=== PATIENT | female | born 1970 | race Caucasian/White ===

== ENCOUNTER → 2018-10-30 09:20 | Outpatient (CLI) | payer MEDICARE, OTHER, SELFPAY ==
[2018-10-30 09:50] LABS: Add Manual Diff / Slide Review NO; Basophils Absolute Auto 100 /uL (0-100); Basophils Percent Auto 0.9 % (0-2); Eosinophils Absolute Auto 200 /uL (0-450); Eosinophils Percent Auto 3.5 % (2-4); Hematocrit 39.2 % (36-46); Hemoglobin 12.9 g/dL (12.0-16.0); Lymphocytes Absolute Auto 1500 /uL (1100-4500); Lymphocytes Percent Auto 23.6 % (25-40); Mean Corpuscular HGB Conc 32.9 % (30-36); Mean Corpuscular Hemoglobin 29.6 PG (26-34); Mean Corpuscular Volume 90.2 fL (80-100); Monocytes Absolute Auto 400 /uL (0-900); Monocytes Percent Auto 6.5 % (3-14); Neutrophils Absolute Auto 4100 /uL (1500-7000); Neutrophils Percent Auto 65.5 % (50-75); Platelet Count 257 X10^3/uL (150-400); Red Blood Cell Count 4.35 X10^6/uL (4.0-5.2); White Blood Cell Count 6.3 X10^3/uL (4.5-11.0)
[2018-10-30 10:48] LABS: Alanine Aminotransferase 35 IU/L (9-52); Albumin 4.2 g/dL (3.5-5.0); Albumin Globulin Ratio 1.5 (1.0-2.8); Alkaline Phosphatase 72 U/L (38-126); Amylase 232 U/L (30-110); Aspartate Aminotransferase 22 IU/L (14-36); BUN Creatinine Ratio 18.6 (6-22); Bilirubin Total 0.5 mg/dL (0.2-1.3); Blood Urea Nitrogen 13 mg/dL (7-17); Calcium 9.1 mg/dL (8.4-10.2); Carbon Dioxide 24 mmol/L (22-32); Chloride 105 mmol/L (98-107); Estimated Glomerular Filt Rate > 60.0 mL/min (>60); Globulin 2.8 g/dL (1.7-4.1); Glucose 82 mg/dL (70-100); HEMOLYSIS < 15 (0-50); Lipase 915 U/L (23-300); Potassium 4.2 mmol/L (3.4-5.1); Sodium 139 mmol/L (137-145)
== END ==
PROVIDERS: PCP Family Medicine; Visit Provider Family Medicine
DX: Q45.3 Other congenital malformations of pancreas and pancreatic duct (principal)
CPT/HCPCS: 36415; 80053; 82150; 83690; 85025

== ENCOUNTER → 2018-11-03 10:02 | Outpatient (CLI) | payer MEDICARE, OTHER, SELFPAY ==
--- NOTE | 2018-11-03 10:04 | DI.US.S_ITS ---
PROCEDURE: US ABDOMEN COMPLETE INDICATIONS: Elevated amylase and lipase, please focus on pancreas TECHNIQUE: Real-time scanning was performed of the abdominal and retroperitoneal organs, with image documentation. COMPARISON: None. FINDINGS: Liver: Liver is normal in size and homogeneous in echotexture. Gallbladder: Unremarkable. No sonographic Huizar's sign Biliary ducts: Intrahepatic bile ducts are non-dilated. Extrahepatic bile duct caliber measures 8-9 mm. Normal is 6-7 mm or less in diameter, or 10 mm or less post-cholecystectomy. However, no sonographically visible etiology. Pancreas: Visualized portions of the pancreas are sonographically normal. Further assessment could be performed with CT as clinically warranted. Spleen: Spleen is normal in size and homogeneous in echotexture. Kidneys: Kidneys are normal in size and echotexture. Right kidney measures 9.5 cm long; left kidney measures 9.5 cm long. No hydronephrosis or nephrolithiasis. No solid masses. Aorta: Visualized aorta is normal in caliber at less than 3 cm. Iliacs: Proximal common iliac arteries are normal in caliber at less than 2.5 cm. IVC: Intrahepatic inferior vena cava is patent. Miscellaneous: No free abdominal fluid. IMPRESSION: Mild prominence of the intrahepatic bile ducts however no sonographically detectable etiology. Please correlate clinically and with LFTs. Unremarkable sonographic appearance of the pancreas. Dictated by: Allen Ramsey M.D. on 11/03/2018 at 11:59 Approved by: Allen Ramsey M.D. on 11/03/2018 at 12:00
== END ==
PROVIDERS: PCP Family Medicine; Visit Provider Family Medicine
DX: R74.8 Abnormal levels of other serum enzymes (principal)
CPT/HCPCS: 76700

== ENCOUNTER 2019-09-19 12:02 | Day surgery (SDC) | payer MEDICARE, OTHER, SELFPAY ==
[2019-08-13 15:01] VITALS: BMI 26.6
[2019-09-19] MEDS: LACTATED RINGERS 1,000 ML 42 ML IV (12:30)
[2019-09-19 12:34] VITALS: BP 118/73; PULSE 72; RESP 16; TEMP 36.3; O2SAT 100; BMI 26.6
--- NOTE | 2019-09-19 13:47 | PM.HP.1 ---
History of Present Illness History of Present Illness Date Patient Seen: 09/19/19 Time Patient Seen: 13:47 Chief complaint: [id number] Narrative: This is a 49-year-old woman with a complex medical and surgical history including multiple cranial surgeries for meningioma, and subsequent CSF leak. She now has a prosthetic structural graft in her forehead. This is been stable now since 2017. She comes in to be seen for a sebaceous cyst on her left upper chest that has been bothering her for many years. It intermittently becomes infected and ruptures open draining foul-smelling fluid and debris on her skin and clothing. When it is not ruptured, it causes irritation, itching and discomfort. ROS: The patient reports fatigue. Thirteen system review is otherwise negative other than as mentioned below and in HPI. GENERAL: Well groomed and cooperative. Appears stated age. Answers questions promptly and appropriately. Vital signs noted. HENT: left temporal scar c/w surgical history of meningioma and forehead reconstruction. Hearing intact. Oral mucosa is pink and moist. EYES: Conjunctiva pink, sclera white, no periorbital swelling. Chest: The left upper chest at the superior margin of the breast at its junction with the chest wall, there is a 2 cm x 1 cm partially mobile subcutaneous mass consistent with a chronic sebaceous cyst which is tethered to the overlying skin with chronic scar tissue; it is moderately TTP and sensitive to touch CARDIOVASCULAR: Regular rate. No pedal edema. RESPIRATORY: Normal respiratory rate, breathing comfortably on room air. GASTROINTESTINAL: Abdomen soft and non-distended GENITALURINARY: No flank tenderness. MUSCULOSKELETAL: Equal tone and mass bilaterally. SKIN: Warm, dry, soft, appropriate color for ethnicity. No other lesions, rashes, or wounds. NEURO: Alert and Oriented X 3. No gross sensory deficits, or cognitive issues. PSYCH: Appropriate affect and mood. Patient History Medical History Benign familial tremor (Chronic ~2015) Carpal tunnel syndrome (Chronic ~1998) Chicken pox (Resolved ~1979) Cognitive disorder (Chronic ~2017) FH: melanoma (Acute) Hx of migraine headaches (Acute) Meningioma (Resolved) Surgical History CSF leak (Resolved) Epidural abscess (Resolved) History of resection of meningioma (Resolved ~07/05/16) Surgical procedure planned (Resolved ~04/03/17) Family & Social History Family History Father Cancer Diabetes mellitus Hypertension Hyperlipidemia Mother History of thyroid disease Grandfather No problems noted. Grandmother No problems noted. Grandfather Hypertension Grandmother No problems noted. Social History: household members none lives independently Yes Tobacco & Substance use: Smoking Status Never smoker alcohol intake current Substance Use Type does not use Meds Home Medications and Allergies Home Medications Medication Instructions Recorded Confirmed Type medroxyprogesterone 150 mg/mL 150 mg IM [id number] 01/13/18 09/19/19 History intramuscular suspension methylphenidate HCl 5 mg tablet 5 mg PO BID 03/14/18 09/19/19 History Lactobac #2-Bifido #1-S. therm 1 cap PO DAILY 08/13/19 09/19/19 History [VSL#3] Allergies Allergy/AdvReac Type Severity Reaction Status Date / Time adhesive AdvReac Severe blisters Verified 09/19/19 12:27 rash Exam Vital Signs (past 8 hours): - 09/19/19 12:34 Temperature 97.4 F L Pulse Rate 72 Respiratory Rate 16 Blood Pressure 118/73 Pulse Oximetry 100 Oxygen Delivery Method Room Air Assessment & Plan Assessment and plan (1) Paresthesia: Problem details: of the skin at the site of sebaceous cyst Current visit: No Status: Acute (2) Pruritus: Problem details: of the skin at the site of sebaceous cyst Current visit: No Status: Acute (3) Sebaceous cyst: Problem details: of trunk, left anterior chest wall Current visit: No Status: Acute Assessment & Plan narrative: Risks and benefits of soft tissue mass excision were discussed with the patient. Risk of bleeding, infection, recurrence, poor healing, scarring, wound infection were discussed with the patient. She desires to proceed with her soft tissue mass excision. Time Spent With Patient Time with patient: 15-24 minutes Quality VTE Deep Vein Thrombosis/Pulmonary Embolism Present on Admission: No
[2019-09-19] MEDS: CEFAZOLIN 2 GM/100 ML FROZ.PIGGY IV (14:03)
--- NOTE | 2019-09-19 14:29 | SUR.OPER ---
Supine on padded OR bed, head on pillow, arms secured on padded arm boards at <90 degrees abduction, legs uncrossed, safety belt at thigh, tape over blanket over lower legs. 4x4 gauze to protect nipples bilaterally with silk tape applied to create downward traction.
[2019-09-19] MEDS: BUPIVACAINE 0.25% W/ EPI 30 ML VIAL INJ (14:35)
[2019-09-19 15:06] VITALS: BP 125/66; PULSE 103; RESP 18; TEMP 36.1; O2SAT 97
[2019-09-19 15:10] VITALS: BP 121/67; PULSE 92; RESP 17; O2SAT 99
--- NOTE | 2019-09-19 15:13 | PM.OP.1 ---
Operative Date/Time/Diagnoses Date of procedure: 09/19/19 Time of procedure: 15:13 Pre-op diagnosis: sebaceous cyst Post-op diagnosis: other (sebaceous cyst with skin involvement) Procedure & Clinicians Procedure: 1) Excision of sebeacous cyst with overlying skin 2) complex closure of skin in two layers Same procedure as scheduled: Yes Indications: 49-year-old woman with sebaceous cyst which continually swells causing pain, paresthesia and pruritus Surgeon: Casie Stratton Click Yes if Unassisted: Yes Anesthesia Type: General Operative Notes Findings: Very thin skin overlying and adherent to large sebaceous cyst Specimen(s): none sent Estimated Blood Loss (mL): 1 Blood products transfused: none Procedure in detail: The patient was brought into the operating room and placed supine on the OR table. Sequential compression devices were placed on both legs and turned on. Appropriate perioperative antibiotics were given prior to the start of surgery. General anesthesia was induced the patient was intubated with an LMA by the anesthesiologist. The chest and neck were prepped and draped in sterile fashion. Surgical time-out was conducted. Local anesthetic was injected under the skin overlying the left chest wall mass. Once the area was well anesthetized, a 15 blade was used to make an oblique incision along the axis of the mass. I immediately got into the mass with a very shallow incision, as the sac was clearly adherent to the skin, with very little intervening subcutaneous tissue. The skin was raised with skin hooks, and I dissected the sac away from the skin with the blade. After began to dissect the sac away, it was clear that I was going to need to remove all of the skin overlying the sac because it would have no blood supply a far left it, and it was very thin. I dissected out the rest of the sac, and passed it off the table. At this point a modified elliptical incision was made which was 12 cm in length and 4 cm in width. This incision encompassed all of the overlying involved skin, and made an appropriate incision for a nice skin closure. The 12 x 4 cm area of skin was sharply excised, and passed off the field. I then established hemostasis using a [place] tip Bovie for few small bleeders. The remaining skin and subcutaneous tissue was clean and well perfused. The skin was mobilized in order to approximate the dermis. The dermis was reapproximated with interrupted 3-0 Vicryl buried vertical mattress sutures. The epidermal edges were then everted and secured with 4-0 Monocryl running subcuticular suture. The skin edges were then sealed with steri strips. A folded 4x4 dressing was used to cover the steri strips and a medium sized Tegaderm was used to secure the gauze in place. This concluded the procedure. At this point the needle, sponge, and instrument counts were correct. Patient was awakened from anesthesia and extubated. She was transferred to the postanesthesia care unit in stable condition. Complications: none Post-operative Condition: stable Disposition: PACU
[2019-09-19 15:15] VITALS: BP 122/61; PULSE 73; RESP 17; O2SAT 98
[2019-09-19 15:35] VITALS: BP 114/73; PULSE 60; RESP 16; TEMP 35.9; O2SAT 93
[2019-09-19 15:59] VITALS: BP 110/67; PULSE 59; RESP 16; TEMP 36.4; O2SAT 97
== END 2019-09-19 16:05 | disposition home or self-care (01) ==
PROVIDERS: PCP Family Medicine; Referring Provider Family Medicine; Visit Provider Surgery
PROC: (CPT 11406; principal; 2019-09-19 13:45)
DX: L72.3 Sebaceous cyst (principal); R20.2 Paresthesia of skin; L29.9 Pruritus, unspecified
CPT/HCPCS: 11406; J0690; J1100; J2405; J2704; J3010

== ENCOUNTER → 2019-10-02 09:51 | Outpatient (CLI) | payer MEDICARE, OTHER, SELFPAY ==
[2019-10-02 10:16] LABS: Add Manual Diff / Slide Review NO; Basophils Absolute Auto 100 /uL (0-100); Basophils Percent Auto 0.6 % (0-2); Eosinophils Absolute Auto 100 /uL (0-450); Eosinophils Percent Auto 1.5 % (2-4); Hemoglobin 13.4 g/dL (12.0-16.0); Lymphocytes Absolute Auto 1700 /uL (1100-4500); Lymphocytes Percent Auto 19.3 % (25-40); Mean Corpuscular HGB Conc 33.5 % (30-36); Mean Corpuscular Hemoglobin 29.9 PG (26-34); Mean Corpuscular Volume 89.3 fL (80-100); Monocytes Absolute Auto 400 /uL (0-900); Neutrophils Absolute Auto 6600 /uL (1500-7000); Neutrophils Percent Auto 73.6 % (50-75); Platelet Count 278 X10^3/uL (150-400); Red Blood Cell Count 4.47 X10^6/uL (4.0-5.2); Red Cell Distribution Width 13.2 % (11.6-14.8); White Blood Cell Count 8.9 X10^3/uL (4.5-11.0)
[2019-10-02 10:46] LABS: Alanine Aminotransferase 18 IU/L (<35); Albumin 4.4 g/dL (3.5-5.0); Albumin Globulin Ratio 1.4 (1.0-2.8); Alkaline Phosphatase 70 U/L (38-126); Amylase 230 U/L (30-110); Aspartate Aminotransferase 18 IU/L (14-36); BUN Creatinine Ratio 18.8 (6-22); Bilirubin Total 0.5 mg/dL (0.2-1.3); Blood Urea Nitrogen 15 mg/dL (7-17); Calcium 9.7 mg/dL (8.4-10.2); Carbon Dioxide 23 mmol/L (22-32); Chloride 106 mmol/L (98-107); Estimated Glomerular Filt Rate > 60.0 mL/min (>60); Globulin 3.1 g/dL (1.7-4.1); Glucose 99 mg/dL (70-100); HEMOLYSIS < 15 (0-50); Lipase 798 U/L (23-300); Sodium 140 mmol/L (137-145); Total Protein 7.5 g/dL (6.3-8.2)
== END ==
PROVIDERS: PCP Family Medicine; Referring Provider Family Medicine; Visit Provider Family Medicine
DX: Q45.3 Other congenital malformations of pancreas and pancreatic duct (principal)
CPT/HCPCS: 36415; 80053; 82150; 83690; 85025

== ENCOUNTER → 2020-09-19 15:05 | Outpatient (CLI) | payer MEDICARE, OTHER, SELFPAY ==
[2020-09-19 16:01] LABS: Add Manual Diff / Slide Review NO; Basophils Absolute Auto 100 /uL (0-100); Basophils Percent Auto 1.2 % (0-2); Eosinophils Absolute Auto 200 /uL (0-450); Eosinophils Percent Auto 2.3 % (2-4); Hematocrit 37.7 % (36-46); Hemoglobin 12.9 g/dL (12.0-16.0); Lymphocytes Absolute Auto 2200 /uL (1100-4500); Mean Corpuscular HGB Conc 34.1 % (30-36); Mean Corpuscular Hemoglobin 30.4 PG (26-34); Mean Corpuscular Volume 89.2 fL (80-100); Monocytes Absolute Auto 700 /uL (0-900); Monocytes Percent Auto 9.7 % (3-14); Neutrophils Absolute Auto 4200 /uL (1500-7000); Neutrophils Percent Auto 56.8 % (50-75); Platelet Count 293 X10^3/uL (150-400); Red Blood Cell Count 4.22 X10^6/uL (4.0-5.2); White Blood Cell Count 7.4 X10^3/uL (4.5-11.0)
[2020-09-19 16:06] LABS: Alanine Aminotransferase 16 IU/L (<35); Albumin 4.4 g/dL (3.5-5.0); Albumin Globulin Ratio 1.5 (1.0-2.8); Alkaline Phosphatase 75 U/L (38-126); Amylase 225 U/L (30-110); Aspartate Aminotransferase 19 IU/L (14-36); BUN Creatinine Ratio 22.5 (6-22); Bilirubin Total 0.4 mg/dL (0.2-1.3); Blood Urea Nitrogen 18 mg/dL (7-17); Calcium 9.4 mg/dL (8.4-10.2); Carbon Dioxide 26 mmol/L (22-32); Chloride 104 mmol/L (98-107); Estimated Glomerular Filt Rate > 60.0 mL/min (>60); Globulin 2.9 g/dL (1.7-4.1); Glucose 106 mg/dL (70-100); HEMOLYSIS < 15 (0-50); Lipase 841 U/L (23-300); Potassium 4.4 mmol/L (3.4-5.1); Sodium 136 mmol/L (137-145); Total Protein 7.3 g/dL (6.3-8.2)
== END ==
PROVIDERS: PCP Family Medicine; Referring Provider Family Medicine; Visit Provider Family Medicine
DX: Q45.3 Other congenital malformations of pancreas and pancreatic duct (principal)
CPT/HCPCS: 36415; 80053; 82150; 83690; 85025

== ENCOUNTER → 2020-10-10 07:58 | Outpatient (CLI) | payer MEDICARE, OTHER, SELFPAY ==
--- NOTE | 2020-10-10 08:00 | DI.US.S_ITS ---
PROCEDURE: US ABDOMEN COMPLETE INDICATIONS: ELEVATED PANCREATIC ENZYMES TECHNIQUE: Real-time scanning was performed of the abdominal and retroperitoneal organs, with image documentation. COMPARISON: [facility], US, US ABDOMEN COMPLETE, 11/03/2018, 10:15. FINDINGS: Liver: Liver is normal in size and homogeneous in echotexture. Gallbladder: No findings of gallstones or sludge are seen. The gallbladder wall is not thickened, measuring 3 mm or less. No specific pericholecystic fluid is seen. The sonographic Huizar sign is negative. Biliary ducts: Intrahepatic bile ducts are non-dilated. Extrahepatic bile duct caliber measures 5 mm. Normal is 6-7 mm or less in diameter, or 10 mm or less post-cholecystectomy. Pancreas: The pancreas demonstrates a coarsened appearance, yet without a focal abnormality identified. Spleen: Spleen is normal in size and homogeneous in echotexture. Kidneys: Kidneys are normal in size and echotexture. Right kidney measures 11 cm long; left kidney measures 10.2 cm long. No hydronephrosis or nephrolithiasis. No solid masses. Aorta: Visualized aorta is normal in caliber at less than 3 cm. Iliacs: Proximal common iliac arteries are normal in caliber at less than 2.5 cm. IVC: Intrahepatic inferior vena cava is patent. Miscellaneous: No free abdominal fluid. IMPRESSION: No significant pancreatic abnormality can be seen. If there is strong clinical concern for complications of pancreatitis, please consider a dedicated CT study for further evaluation. Dictated by: Jared Kraus M.D. on 10/10/2020 at 11:23 Approved by: Jared Kraus M.D. on 10/10/2020 at 11:24
== END ==
PROVIDERS: PCP Family Medicine; Referring Provider Family Medicine; Visit Provider Family Medicine
DX: R74.8 Abnormal levels of other serum enzymes (principal); Q45.3 Other congenital malformations of pancreas and pancreatic duct
CPT/HCPCS: 76700

== ENCOUNTER → 2020-10-28 09:49 | Outpatient (CLI) | payer MEDICARE, OTHER, SELFPAY ==
--- NOTE | 2020-10-28 09:52 | DI.MRI.S_ITS ---
PROCEDURE: MR ABDOMEN WO/W CON INDICATIONS: chronic pancreatitis TECHNIQUE: Coronal HASTE, axial 2D FLASH in- and [id number]; axial breath-hold T2 FSE. Dynamic axial VIBE during the administration of contrast; post-contrast coronal VIBE or 2D FLASH with fat saturation from the hepatic dome to the iliac crests. Optional diffusion weighted imaging and ADC may be performed. COMPARISON: [facility], US, US ABDOMEN COMPLETE, 10/10/2020, 8:28. [facility], CT, CT ABD PELVIS W CON, 02/01/2016, 23:22. FINDINGS: Image quality: Excellent. Lung bases: No basal pleural effusions. Heart size is normal. Solid organs: Liver is normal in size and enhancement. Tiny T2 hyperintense cyst in the right lobe of the. No suspicious enhancement. No restricted diffusion. Gallbladder is unremarkable. Biliary system is non dilated. CBD measures 0.7 cm in tapers distally. Pancreas is normal in morphology. The pancreas enhances uniformly. Normal intrinsic T1 signal. No restricted diffusion. No edema signal. No pancreatic ductal dilatation. No peripancreatic fluid collection. Spleen is normal in size and enhancement. No adrenal nodules. Both kidneys demonstrate normal size and enhancement, without hydronephrosis. Nodes and vessels: No retroperitoneal or mesenteric adenopathy by size criteria. Aorta and inferior vena cava are normal in size. Bowel and peritoneum: Unenhanced bowel loops are normal in caliber. No free fluid. Bones and soft tissues: No ventral hernias. Bone marrow is normal in overall signal. IMPRESSION: 1. No acute pancreatitis demonstrated. No peripancreatic fluid collection. 2. No pancreatic or biliary ductal dilatation. 3. No gallstones seen. Dictated by: Ashish Bardales M.D. on 10/28/2020 at 17:47 Approved by: Ashish Bardales M.D. on 10/28/2020 at 17:59
== END ==
PROVIDERS: PCP Family Medicine; Referring Provider Family Medicine; Visit Provider Family Medicine
DX: K86.1 Other chronic pancreatitis (principal)
CPT/HCPCS: 74183; A9579

== ENCOUNTER → 2021-06-01 14:13 | Outpatient (CLI) | payer MEDICARE, OTHER, SELFPAY ==
[2021-06-01 15:50] LABS: Alanine Aminotransferase 21 IU/L (<35); Albumin 4.2 g/dL (3.5-5.0); Albumin Globulin Ratio 1.6 (1.0-2.8); Alkaline Phosphatase 66 U/L (38-126); Amylase 193 U/L (30-110); Aspartate Aminotransferase 20 IU/L (14-36); BUN Creatinine Ratio 19.6 (6-22); Bilirubin Total 0.1 mg/dL (0.2-1.3); Blood Urea Nitrogen 18 mg/dL (7-17); Calcium 9.3 mg/dL (8.4-10.2); Carbon Dioxide 26 mmol/L (22-32); Chloride 108 mmol/L (98-107); Estimated Glomerular Filt Rate > 60.0 mL/min (>60); Globulin 2.6 g/dL (1.7-4.1); Glucose 100 mg/dL (70-100); HEMOLYSIS < 15 (0-50); Lipase 681 U/L (23-300); Potassium 4.5 mmol/L (3.4-5.1); Sodium 141 mmol/L (137-145); Total Protein 6.8 g/dL (6.3-8.2)
== END ==
PROVIDERS: PCP Family Medicine; Referring Provider Family Medicine; Visit Provider Family Medicine
DX: Q45.3 Other congenital malformations of pancreas and pancreatic duct (principal)
CPT/HCPCS: 36415; 80053; 82150; 83690

== ENCOUNTER → 2021-12-24 07:41 | Outpatient (CLI) | payer MEDICARE, OTHER, SELFPAY ==
[2021-12-24 08:49] LABS: Add Manual Diff / Slide Review NO; Basophils Absolute Auto 0 /uL (0-100); Basophils Percent Auto 0.9 % (0-2); Eosinophils Absolute Auto 300 /uL (0-450); Eosinophils Percent Auto 4.9 % (2-4); Hematocrit 37.8 % (36-46); Hemoglobin 12.8 g/dL (12.0-16.0); Lymphocytes Absolute Auto 1700 /uL (1100-4500); Lymphocytes Percent Auto 29.1 % (25-40); Mean Corpuscular HGB Conc 33.9 % (30-36); Mean Corpuscular Hemoglobin 29.8 PG (26-34); Mean Corpuscular Volume 88.1 fL (80-100); Monocytes Absolute Auto 400 /uL (0-900); Monocytes Percent Auto 7.7 % (3-14); Neutrophils Absolute Auto 3300 /uL (1500-7000); Neutrophils Percent Auto 57.4 % (50-75); Platelet Count 288 X10^3/uL (150-400); Red Blood Cell Count 4.29 X10^6/uL (4.0-5.2); Red Cell Distribution Width 12.8 % (11.6-14.8); White Blood Cell Count 5.8 X10^3/uL (4.5-11.0)
[2021-12-24 09:26] LABS: Alanine Aminotransferase 19 IU/L (<35); Albumin 4.3 g/dL (3.5-5.0); Albumin Globulin Ratio 1.7 (1.0-2.8); Alkaline Phosphatase 70 U/L (38-126); Amylase 169 U/L (30-110); Aspartate Aminotransferase 21 IU/L (14-36); BUN Creatinine Ratio 17.6 (6-22); Bilirubin Total 0.6 mg/dL (0.2-1.3); Blood Urea Nitrogen 16 mg/dL (7-17); Calcium 9.2 mg/dL (8.4-10.2); Carbon Dioxide 26 mmol/L (22-32); Chloride 109 mmol/L (98-107); Cholesterol 197 mg/dL (140-199); Estimated Glomerular Filt Rate > 60 mL/min (>60); Globulin 2.6 g/dL (1.7-4.1); Glucose 93 mg/dL (70-100); HDL Cholesterol 65 mg/dL (40-60); HEMOLYSIS < 15 (0-50); LDL Cholesterol Calculated 112 mg/dL (<100); Lipase 558 U/L (23-300); Potassium 4.8 mmol/L (3.4-5.1); Sodium 141 mmol/L (137-145); Total Protein 6.9 g/dL (6.3-8.2); Triglycerides 100 mg/dL (35-150)
[2021-12-25 16:08] LABS: Fecal Immunochemical Test Negative (Negative)
== END ==
PROVIDERS: PCP Family Medicine; Referring Provider Family Medicine; Visit Provider Family Medicine
DX: Z86.011 Personal history of benign neoplasm of the brain (principal); Q45.3 Other congenital malformations of pancreas and pancreatic duct; Z12.11 Encounter for screening for malignant neoplasm of colon; Z13.220 Encounter for screening for lipoid disorders
CPT/HCPCS: 36415; 80053; 80061; 82150; 82274; 83690; 85025

== ENCOUNTER → 2023-05-30 14:31 | Outpatient (CLI) | payer MEDICARE, OTHER, SELFPAY ==
[2023-05-30 14:57] LABS: Hematocrit 39.2 % (36-46); Hemoglobin 13.2 g/dL (12.0-16.0); Mean Corpuscular HGB Conc 33.6 % (30-36); Mean Corpuscular Hemoglobin 29.9 PG (26-34); Platelet Count 317 X10^3/uL (150-400); Red Blood Cell Count 4.41 X10^6/uL (4.0-5.2); Red Cell Distribution Width 13.3 % (11.6-14.8); White Blood Cell Count 7.8 X10^3/uL (4.5-11.0)
[2023-05-30 15:28] LABS: Alanine Aminotransferase 24 IU/L (<35); Albumin 4.5 g/dL (3.5-5.0); Albumin Globulin Ratio 1.4 (1.0-2.8); Alkaline Phosphatase 66 U/L (38-126); Amylase 374 U/L (30-110); Aspartate Aminotransferase 24 IU/L (14-36); BUN Creatinine Ratio 19.8 (6-22); Bilirubin Total 0.2 mg/dL (0.2-1.3); Blood Urea Nitrogen 17 mg/dL (7-17); Calcium 9.6 mg/dL (8.4-10.2); Carbon Dioxide 26 mmol/L (22-32); Chloride 106 mmol/L (98-107); Cholesterol 198 mg/dL (140-199); Estimated Glomerular Filt Rate > 60 mL/min (>60); Globulin 3.2 g/dL (1.7-4.1); Glucose 104 mg/dL (70-100); HDL Cholesterol 70 mg/dL (40-60); HEMOLYSIS < 15 (0-50); LDL Cholesterol Calculated 104 mg/dL (<100); Lipase 1466 U/L (23-300); Potassium 4.4 mmol/L (3.4-5.1); Sodium 141 mmol/L (137-145); Total Protein 7.7 g/dL (6.3-8.2); Triglycerides 119 mg/dL (35-150)
[2023-05-30 16:50] LABS: TSH w/ Reflex to FT4 1.03 uIU/mL (0.47-4.68)
== END ==
PROVIDERS: PCP Internal Medicine; Referring Provider Internal Medicine; Visit Provider Internal Medicine
DX: E78.2 Mixed hyperlipidemia (principal); Q45.3 Other congenital malformations of pancreas and pancreatic duct; Z86.011 Personal history of benign neoplasm of the brain
CPT/HCPCS: 36415; 80053; 80061; 82150; 83690; 84443; 85027

== ENCOUNTER → 2023-06-08 13:49 | Outpatient (CLI) | payer MEDICARE, OTHER, SELFPAY ==
[2023-06-10 12:02] LABS: Fecal Immunochemical Test Negative (Negative)
== END ==
PROVIDERS: PCP Internal Medicine; Referring Provider Internal Medicine; Visit Provider Internal Medicine
DX: Z12.11 Encounter for screening for malignant neoplasm of colon (principal)
CPT/HCPCS: 82274

== ENCOUNTER → 2024-06-04 15:21 | Outpatient (CLI) | payer MEDICARE, OTHER, SELFPAY ==
[2024-06-04 16:02] LABS: Hemoglobin 13.4 g/dL (12.0-16.0); Mean Corpuscular HGB Conc 33.4 % (30-36); Mean Corpuscular Hemoglobin 29.9 PG (26-34); Mean Corpuscular Volume 89.5 fL (80-100); Platelet Count 310 X10^3/uL (150-400); Red Blood Cell Count 4.47 X10^6/uL (4.0-5.2); Red Cell Distribution Width 13.1 % (11.6-14.8); White Blood Cell Count 7.8 X10^3/uL (4.5-11.0)
[2024-06-04 16:21] LABS: Alanine Aminotransferase 22 IU/L (<35); Albumin 4.6 g/dL (3.5-5.0); Albumin Globulin Ratio 1.6 (1.0-2.8); Alkaline Phosphatase 73 U/L (38-126); Amylase 273 U/L (30-110); Aspartate Aminotransferase 24 IU/L (14-36); BUN Creatinine Ratio 20.4 (6-22); Bilirubin Total 0.4 mg/dL (0.2-1.3); Blood Urea Nitrogen 20 mg/dL (7-17); Calcium 9.5 mg/dL (8.4-10.2); Carbon Dioxide 24 mmol/L (22-32); Chloride 106 mmol/L (98-107); Cholesterol 201 mg/dL (140-199); Estimated Glomerular Filt Rate > 60 mL/min (>60); Globulin 2.9 g/dL (1.7-4.1); Glucose 121 mg/dL (70-100); HDL Cholesterol 62 mg/dL (40-60); HEMOLYSIS < 15 (0-50); LDL Cholesterol Calculated 115 mg/dL (<100); Lipase 856 U/L (23-300); Potassium 4.3 mmol/L (3.4-5.1); Sodium 139 mmol/L (137-145); Total Protein 7.5 g/dL (6.3-8.2); Triglycerides 122 mg/dL (35-150)
[2024-06-04 16:51] LABS: TSH w/ Reflex to FT4 0.74 uIU/mL (0.47-4.68)
== END ==
LOC: LAB 15:24
PROVIDERS: PCP Internal Medicine; Referring Provider Internal Medicine; Visit Provider Internal Medicine
DX: Q45.3 Other congenital malformations of pancreas and pancreatic duct (principal); E78.2 Mixed hyperlipidemia; Z86.011 Personal history of benign neoplasm of the brain
CPT/HCPCS: 36415; 80053; 80061; 82150; 83690; 84443; 85027

== ENCOUNTER → 2024-07-18 15:03 | Outpatient (CLI) | payer MEDICARE, OTHER, SELFPAY ==
[2024-07-20 13:12] LABS: Fecal Immunochemical Test Negative (Negative)
== END ==
PROVIDERS: PCP Internal Medicine; Referring Provider Internal Medicine; Visit Provider Internal Medicine
DX: Z12.11 Encounter for screening for malignant neoplasm of colon (principal)
CPT/HCPCS: 82274

== ENCOUNTER → 2025-06-05 15:18 | Outpatient (CLI) | payer MEDICARE, OTHER, SELFPAY ==
[2025-06-05 17:25] LABS: Hemoglobin A1C% w Est Avg Glu 5.4 % (4.0-6.0)
[2025-06-05 17:45] LABS: Blood Urea Nitrogen 17 mg/dL (7-17); Calcium 9.2 mg/dL (8.4-10.2); Carbon Dioxide 27 mmol/L (22-32); Chloride 103 mmol/L (98-107); Cholesterol 194 mg/dL (140-199); Estimated Glomerular Filt Rate > 60 mL/min (>60); Glucose 81 mg/dL (70-99); HDL Cholesterol 75 mg/dL (40-60); HEMOLYSIS < 15 (0-50); Potassium 4.4 mmol/L (3.4-5.1); Sodium 137 mmol/L (137-145); Triglycerides 118 mg/dL (35-150)
== END ==
PROVIDERS: PCP Internal Medicine; Referring Provider Internal Medicine; Visit Provider Internal Medicine
DX: R73.01 Impaired fasting glucose (principal); E78.2 Mixed hyperlipidemia
CPT/HCPCS: 36415; 80048; 80061; 83036

== ENCOUNTER → 2025-07-23 13:46 | Outpatient (CLI) | payer MEDICARE, OTHER, SELFPAY | PROVIDERS: PCP Internal Medicine; Referring Provider Internal Medicine; Visit Provider Internal Medicine | DX: Z12.11 Encounter for screening for malignant neoplasm of colon (principal) | CPT/HCPCS: 82274 ==